=== PATIENT | female | born 1945 | race Caucasian/White ===

== ENCOUNTER → 2020-11-12 | Outpatient (CLI) | payer OTHER, MEDICAID ==
[~2020-11-12] MED LIST: ACETAZOLAMIDE250 MG PO; BETAPACE 80MG T80 MG PO; BUSPIRONE HCL5 MG PO; CLARITIN10 M2 PO; COUMADIN4 MG PO; COUMADIN6 MG PO; CRESTOR10 MG PO; ELIQUIS 5 MG TAB5 MG PO; FOLIC ACID PO; FOLIC ACID0.4 MG PO; FUROSEMIDE20 MG PO; FUROSEMIDE40 MG PO; IMDUR ER TAB 6060 MG PO; IPRAT-ALBUT 0.5-3 ML NEB; ISOSORBIDE MONO30 MG PO; ISOSORBIDE MONO60 MG PO; K-DUR TAB 10 M10 MEQ PO; K-DUR TAB 20 M20 MEQ PO; KLONOPIN TAB 00.5 MG PO; LASIX20 MG PO; LEVOTHYROXINE100 MCG PO; LEVOTHYROXINE112 MCG PO; LIVALO4 MG PO; MACROBID 100 M100 MG PO; MESTINON TAB 6060 MG PO; MESTINON60 MG PO; METHOTREXATE T2.5 MG PO; MYCOSTATIN100000 UTS PO; NASACORT16.9 ML; NEURONTIN 300300 MG PO; NORVASC 5 MG TAB5 MG PO; ONDANSETRON HCL8 MG PO; PREDNISONE 1 MG1 MG PO; PREDNISONE 20 M20 MG PO; PREDNISONE10 MG PO; PROAIR HFA8.5 GM INH; PROTONIX 40 MG40 M1 PO; SOTALOL AF120 MG PO; SOTALOL120 MG PO; SYNTHROID112 MCG PO; TRAMADOL HCL50 MG PO; TRAVATAN Z2.5 ML OP; ULTRAM50 MG PO; VENTOLIN HFA 66.7 GM INH; VITAMIN D 11000 UNIT PO; WARFARIN SODIUM4 MG PO; ZOLPIDEM TARTRAT5 MG PO
== END ==
LOC: KOH-I 11:08
DX: J18.9 Pneumonia, unspecified organism (principal); I51.7 Cardiomegaly; J98.4 Other disorders of lung
CPT/HCPCS: 71046

== ENCOUNTER → 2020-12-06 | Outpatient (CLI) | payer OTHER, MEDICAID | LOC: EXRD 11-26 08:45 | DX: R10.9 Unspecified abdominal pain (principal); K80.20 Calculus of gallbladder without cholecystitis without obstruction | CPT/HCPCS: 76700 ==

== ENCOUNTER → 2021-01-26 | Outpatient (CLI) | payer OTHER, MEDICAID | LOC: HEART 5 01-12 14:00 | DX: I48.91 Unspecified atrial fibrillation (principal); R94.39 Abnormal result of other cardiovascular function study ==

== ENCOUNTER 2021-02-03 12:47 | Observation (INO) | payer OTHER, MEDICAID ==
[~2021-02-03] VITALS: Ht 162.6 cm; Wt 88.5 kg
[~2021-02-03 12:47] MED LIST changes: -ACETAZOLAMIDE250 MG PO; -BETAPACE 80MG T80 MG PO; -BUSPIRONE HCL5 MG PO; -ELIQUIS 5 MG TAB5 MG PO; -FUROSEMIDE40 MG PO; -IPRAT-ALBUT 0.5-3 ML NEB; -K-DUR TAB 10 M10 MEQ PO; -LEVOTHYROXINE100 MCG PO; -MYCOSTATIN100000 UTS PO; -NASACORT16.9 ML; -ONDANSETRON HCL8 MG PO; -PREDNISONE 20 M20 MG PO; -PREDNISONE10 MG PO; -PROTONIX 40 MG40 M1 PO; -TRAMADOL HCL50 MG PO; -VENTOLIN HFA 66.7 GM INH; -WARFARIN SODIUM4 MG PO; -ZOLPIDEM TARTRAT5 MG PO
[2021-02-03 13:59] LABS: HEMOGLOBIN 13.1 gm/dl (12.3-15.3); RED BLOOD COUNT 3.91 M/UL (4.00-5.10); WHITE BLOOD COUNT 6.2 K/UL (4.5-11.0)
[2021-02-03 14:22] LABS: BUN/CREATININE RATIO 19 (0-10)
[2021-02-03] MEDS ORDERED: BUSPIRONE HCL5 MG PO (17:08)
[2021-02-03] MEDS ORDERED: FOLIC ACID0.4 MG PO (17:09)
[2021-02-03] MEDS ORDERED: FUROSEMIDE40 MG PO (17:12)
[2021-02-03] MEDS ORDERED: LEVOTHYROXINE100 MCG PO (17:12)
[2021-02-03] MEDS ORDERED: ISOSORBIDE MONO60 MG PO (17:13)
[2021-02-03] MEDS ORDERED: K-DUR TAB 10 M10 MEQ PO (17:14)
[2021-02-03] MEDS ORDERED: SOTALOL120 MG PO (17:15)
[2021-02-03] MEDS ORDERED: WARFARIN SODIUM4 MG PO (17:16)
[2021-02-03] MEDS ORDERED: ZOLPIDEM TARTRAT5 MG PO (17:16)
[2021-02-03] MEDS ORDERED: VENTOLIN HFA 66.7 GM INH (17:17)
[2021-02-03] MEDS ORDERED: NASACORT16.9 ML (17:26)
[2021-02-04 06:31] LABS: HEMOGLOBIN 12.1 gm/dl (12.3-15.3); RED BLOOD COUNT 3.65 M/UL (4.00-5.10); WHITE BLOOD COUNT 5.9 K/UL (4.5-11.0)
[2021-02-05 04:05] LABS: HEMOGLOBIN 11.1 gm/dl (12.3-15.3); RED BLOOD COUNT 3.4 M/UL (4.00-5.10); WHITE BLOOD COUNT 5.2 K/UL (4.5-11.0)
[2021-02-05 04:22] LABS: BUN/CREATININE RATIO 17 (0-10)
[2021-02-06] MEDS ORDERED: PROTONIX 40 MG40 M1 PO (16:28)
[2021-02-06] MEDS ORDERED: BETAPACE 80MG T80 MG PO (16:28)
[2021-02-06] MEDS ORDERED: ISOSORBIDE MONO30 MG PO (16:28)
[2021-02-06] MEDS ORDERED: ELIQUIS 5 MG TAB5 MG PO (16:28)
== END 2021-02-06 18:38 | disposition home or self-care (01) ==
LOC: ER1 12:47 → MED SURG 4 15:49 → CDU 15:49 → MED SURG 4 19:06
PROVIDERS: Physician Assistant; Physician Assistant Medical; ADMIT Internal Medicine Infectious Disease
DX: N30.00 Acute cystitis without hematuria (principal); B96.20 Unspecified Escherichia coli [E. coli] as the cause of diseases classified elsewhere; R11.2 Nausea with vomiting, unspecified; I49.8 Other specified cardiac arrhythmias; I48.20 Chronic atrial fibrillation, unspecified; G70.00 Myasthenia gravis without (acute) exacerbation; T45.515A Adverse effect of anticoagulants, initial encounter; I25.10 Atherosclerotic heart disease of native coronary artery without angina pectoris; I27.20 Pulmonary hypertension, unspecified; J96.11 Chronic respiratory failure with hypoxia; I11.0 Hypertensive heart disease with heart failure; I50.30 Unspecified diastolic (congestive) heart failure; E89.0 Postprocedural hypothyroidism; E78.5 Hyperlipidemia, unspecified; I89.0 Lymphedema, not elsewhere classified; D50.9 Iron deficiency anemia, unspecified; Z95.1 Presence of aortocoronary bypass graft; Z79.01 Long term (current) use of anticoagulants; Z79.899 Other long term (current) drug therapy; Z20.822 Contact with and (suspected) exposure to COVID-19
CPT/HCPCS: 0240U; 36415; 36600; 71045; 80048; 80053; 81001; 82550; 82553; 82803; 83690; 83735; 83874; 84439; 84443; 84484; 85025; 85027; 85610; 87077; 87086; 87186; 93005; 94640; 94664; 94760; 96374; 96375; 96376; 97110; 97110-GP-CQ; 97116-GP-CQ; 97162; 99285; C9113; G0378; J0696; J2405; J3430; J7030

== ENCOUNTER 2021-02-09 10:33 | Emergency (ER) | payer OTHER ==
[~2021-02-09 10:33] MED LIST changes: +BETAPACE 80MG T80 MG PO; +BUSPIRONE HCL5 MG PO; +ELIQUIS 5 MG TAB5 MG PO; +FUROSEMIDE40 MG PO; +K-DUR TAB 10 M10 MEQ PO; +LEVOTHYROXINE100 MCG PO; +NASACORT16.9 ML; +PROTONIX 40 MG40 M1 PO; +VENTOLIN HFA 66.7 GM INH; +WARFARIN SODIUM4 MG PO; +ZOLPIDEM TARTRAT5 MG PO
[2021-02-09 12:18] LABS: HEMOGLOBIN 13.1 gm/dl (12.3-15.3); RED BLOOD COUNT 3.91 M/UL (4.00-5.10); WHITE BLOOD COUNT 6.5 K/UL (4.5-11.0)
[2021-02-09 12:32] LABS: BUN/CREATININE RATIO 16 (0-10)
== END 2021-02-09 15:22 | disposition home or self-care (01) ==
LOC: ER1 10:33
PROVIDERS: Emergency Medicine
DX: J44.1 Chronic obstructive pulmonary disease with (acute) exacerbation (principal); I50.9 Heart failure, unspecified; N39.0 Urinary tract infection, site not specified; I48.91 Unspecified atrial fibrillation; Z95.1 Presence of aortocoronary bypass graft; Z91.041 Radiographic dye allergy status; Z79.899 Other long term (current) drug therapy
CPT/HCPCS: 71045; 80053; 81001; 82550; 82553; 83874; 84484; 85025; 87086; 93005; 99285

== ENCOUNTER 2021-02-16 16:08 | Inpatient (IN) | payer OTHER ==
[~2021-02-16] VITALS: Ht 162.6 cm; Wt 84.8 kg
[2021-02-16 19:36] LABS: HEMOGLOBIN 13.6 gm/dl (12.3-15.3); RED BLOOD COUNT 4.02 M/UL (4.00-5.10); WHITE BLOOD COUNT 7.1 K/UL (4.5-11.0)
[2021-02-16 20:01] LABS: BUN/CREATININE RATIO 15 (0-10)
[2021-02-17 04:07] LABS: HEMOGLOBIN 12.4 gm/dl (12.3-15.3); RED BLOOD COUNT 3.71 M/UL (4.00-5.10); WHITE BLOOD COUNT 6.3 K/UL (4.5-11.0)
[2021-02-17] MEDS ORDERED: ONDANSETRON HCL8 MG PO (14:23)
[2021-02-18 06:52] LABS: HEMOGLOBIN 12.5 gm/dl (12.3-15.3); RED BLOOD COUNT 3.74 M/UL (4.00-5.10)
[2021-02-18 06:54] LABS: WHITE BLOOD COUNT 8.4 K/UL (4.5-11.0)
[2021-02-19 04:41] LABS: HEMOGLOBIN 11.3 gm/dl (12.3-15.3); RED BLOOD COUNT 3.39 M/UL (4.00-5.10); WHITE BLOOD COUNT 8.3 K/UL (4.5-11.0)
[2021-02-19 04:58] LABS: BUN/CREATININE RATIO 26 (0-10)
[2021-02-20 04:00] LABS: HEMOGLOBIN 11.1 gm/dl (12.3-15.3); RED BLOOD COUNT 3.31 M/UL (4.00-5.10); WHITE BLOOD COUNT 6.3 K/UL (4.5-11.0)
[2021-02-20 05:54] LABS: BUN/CREATININE RATIO 27 (0-10)
[2021-02-21 06:00] LABS: HEMOGLOBIN 11.3 gm/dl (12.3-15.3); RED BLOOD COUNT 3.39 M/UL (4.00-5.10); WHITE BLOOD COUNT 7.3 K/UL (4.5-11.0)
[2021-02-21 06:29] LABS: BUN/CREATININE RATIO 32 (0-10)
[2021-02-21 14:06] LABS: ENTEROCOCCUS Not Detected (Negative); KPC-CARBAPENEM-RESISTANCE GENE Not Detected (Negative); STAPHYLOCOCCUS AUREUS Not Detected (Negative); STREP AGALACTIAE (GROUP B) Not Detected (Negative); STREPTOCOCCUS Not Detected (Negative); mecA (METHICILLIN RESIST GENE Not Detected (Negative); vanA/B (VANCOMYCIN RESIST GENE Not Detected (Negative)
[2021-02-21 14:07] LABS: ACINETOBACTER BAUMANNII Not Detected (Negative); CANDIDA ALBICANS Not Detected (Negative); CANDIDA KRUSEI Not Detected (Negative); CANDIDA TROPICALIS Not Detected (Negative); ESCHERICHIA COLI Not Detected (Negative); HAEMOPHILUS INFLUENZAE Not Detected (Negative); KLEBSIELLA OXYTOCA Not Detected (Negative); KLEBSIELLA PNEUMONIAE Not Detected (Negative); PROTEUS Not Detected (Negative); PSEUDOMONAS AERUGINOSA Not Detected (Negative); SERRATIA MARCESANS Not Detected (Negative); STREP PYOGENES (GROUP A) Not Detected (Negative)
[2021-02-21 15:21] LABS: STAPHYLOCOCCUS DETECTED (Negative)
[2021-02-22 06:38] LABS: HEMOGLOBIN 11.2 gm/dl (12.3-15.3); RED BLOOD COUNT 3.36 M/UL (4.00-5.10)
[2021-02-22 06:59] LABS: BUN/CREATININE RATIO 30 (0-10)
[2021-02-23 05:04] LABS: HEMOGLOBIN 13.5 gm/dl (12.3-15.3); RED BLOOD COUNT 4.23 M/UL (4.00-5.10); WHITE BLOOD COUNT 8.2 K/UL (4.5-11.0)
[2021-02-23 05:19] LABS: BUN/CREATININE RATIO 36 (0-10)
[2021-02-24 04:41] LABS: WHITE BLOOD COUNT 7.3 K/UL (4.5-11.0)
[2021-02-24 04:42] LABS: RED BLOOD COUNT 3.6 M/UL (4.00-5.10)
[2021-02-24 05:06] LABS: BUN/CREATININE RATIO 36 (0-10)
[2021-02-25 03:32] LABS: HEMOGLOBIN 11.1 gm/dl (12.3-15.3); RED BLOOD COUNT 3.33 M/UL (4.00-5.10); WHITE BLOOD COUNT 7.4 K/UL (4.5-11.0)
[2021-02-25 03:51] LABS: BUN/CREATININE RATIO 32 (0-10)
[2021-02-28 04:08] LABS: HEMOGLOBIN 12.3 gm/dl (12.3-15.3); RED BLOOD COUNT 3.72 M/UL (4.00-5.10); WHITE BLOOD COUNT 9.4 K/UL (4.5-11.0)
[2021-02-28 04:37] LABS: BUN/CREATININE RATIO 35 (0-10)
[2021-02-28] MEDS ORDERED: ACETAZOLAMIDE250 MG PO (10:52)
[2021-02-28] MEDS ORDERED: TRAMADOL HCL50 MG PO (10:52)
[2021-02-28] MEDS ORDERED: PREDNISONE10 MG PO (11:01)
== END 2021-02-28 14:32 | DRG 56 ==
LOC: ER1 16:08 → CDU 21:48 → MED SURG 4 21:48
PROVIDERS: Internal Medicine; Internal Medicine Pulmonary Disease; ADMIT Internal Medicine
DX: G70.01 Myasthenia gravis with (acute) exacerbation (principal); J96.21 Acute and chronic respiratory failure with hypoxia; J96.22 Acute and chronic respiratory failure with hypercapnia; Z20.822 Contact with and (suspected) exposure to COVID-19; I50.41 Acute combined systolic (congestive) and diastolic (congestive) heart failure; N17.9 Acute kidney failure, unspecified; E87.3 Alkalosis; J44.1 Chronic obstructive pulmonary disease with (acute) exacerbation; N39.0 Urinary tract infection, site not specified; J90 Pleural effusion, not elsewhere classified; E66.2 Morbid (severe) obesity with alveolar hypoventilation; I48.20 Chronic atrial fibrillation, unspecified; E87.1 Hypo-osmolality and hyponatremia; E87.6 Hypokalemia; E03.9 Hypothyroidism, unspecified; D50.9 Iron deficiency anemia, unspecified; I11.0 Hypertensive heart disease with heart failure; I89.0 Lymphedema, not elsewhere classified; I27.20 Pulmonary hypertension, unspecified; E86.0 Dehydration; M19.09 Primary osteoarthritis, other specified site; E83.39 Other disorders of phosphorus metabolism; I25.10 Atherosclerotic heart disease of native coronary artery without angina pectoris; K59.00 Constipation, unspecified; I48.0 Paroxysmal atrial fibrillation; Z79.01 Long term (current) use of anticoagulants; Z95.1 Presence of aortocoronary bypass graft; Z83.3 Family history of diabetes mellitus; Z91.041 Radiographic dye allergy status; Z82.49 Family history of ischemic heart disease and other diseases of the circulatory system; Z68.30 Body mass index [BMI] 30.0-30.9, adult
CPT/HCPCS: 0240U; 36415; 36600; 71045; 76700; 80048; 80053; 80202; 81001; 82550; 82553; 82803; 83605; 83615; 83690; 83735; 83874; 83880; 84100; 84132; 84484; 85025; 85027; 86140; 87040; 87077; 87150; 87186; 92610; 93005; 94060; 94640; 94664; 94760; 96374; 97110; 97116-GP-CQ; 97161; 97530; 97530-GP-CQ; 99285; J0456; J0696; J1040; J1568; J1940; J2920; J2930; J3370; J7030; J7070; J8610

== ENCOUNTER 2021-03-13 18:31 | Inpatient (IN) | payer OTHER ==
[~2021-03-13] VITALS: Ht 162.6 cm; Wt 69.4 kg
[~2021-03-13 18:31] MED LIST changes: +ACETAZOLAMIDE250 MG PO; +ONDANSETRON HCL8 MG PO; +PREDNISONE10 MG PO; +TRAMADOL HCL50 MG PO
[2021-03-13 21:04] LABS: HEMOGLOBIN 11.4 gm/dl (12.3-15.3); RED BLOOD COUNT 3.47 M/UL (4.00-5.10); WHITE BLOOD COUNT 5.5 K/UL (4.5-11.0)
[2021-03-13 21:31] LABS: BUN/CREATININE RATIO 30 (0-10)
[2021-03-14 12:45] LABS: HEMOGLOBIN 10.7 gm/dl (12.3-15.3); RED BLOOD COUNT 3.17 M/UL (4.00-5.10)
[2021-03-14 13:09] LABS: BUN/CREATININE RATIO 31 (0-10)
[2021-03-15 04:37] LABS: HEMOGLOBIN 10.1 gm/dl (12.3-15.3); RED BLOOD COUNT 3.02 M/UL (4.00-5.10)
[2021-03-15 05:00] LABS: BUN/CREATININE RATIO 32 (0-10)
[2021-03-16 03:29] LABS: BUN/CREATININE RATIO 30 (0-10)
[2021-03-18 03:39] LABS: BUN/CREATININE RATIO 27 (0-10)
[2021-03-21 06:57] LABS: BUN/CREATININE RATIO 13 (0-10)
[2021-03-22 04:59] LABS: BUN/CREATININE RATIO 12 (0-10)
[2021-03-24 04:13] LABS: RED BLOOD COUNT 3.02 M/UL (4.00-5.10); WHITE BLOOD COUNT 4.9 K/UL (4.5-11.0)
[2021-03-24 04:43] LABS: BUN/CREATININE RATIO 13 (0-10)
[2021-03-25] MEDS ORDERED: TRAMADOL HCL50 MG PO (09:49)
[2021-03-25] MEDS ORDERED: MYCOSTATIN100000 UTS PO (11:10)
== END 2021-03-25 16:58 | DRG 981 ==
LOC: ER1 18:31 → CDU 03-14 00:18 → PROG CARE 03-14 00:18 → MED SURG 4 03-14 00:18 → PROG CARE 03-14 20:51 → MED SURG 4 03-18 12:12
PROVIDERS: Emergency Medicine; Internal Medicine; ADMIT Family Medicine
PROC: 5A09457 Assistance with Respiratory Ventilation, 24-96 Consecutive Hours, Continuous Positive Airway Pressure (ICD-10-PCS; principal; 2021-03-14)
PROC: 0D9 Gastrointestinal System, Drainage (ICD-10-PCS; 2021-03-21)
PROC: 0DH63UZ Insertion of Feeding Device into Stomach, Percutaneous Approach (ICD-10-PCS; 2021-03-21)
PROC: 3E0G76Z Introduction of Nutritional Substance into Upper GI, Via Natural or Artificial Opening (ICD-10-PCS; 2021-03-21)
DX: J96.22 Acute and chronic respiratory failure with hypercapnia (principal); J69.0 Pneumonitis due to inhalation of food and vomit; G93.41 Metabolic encephalopathy; E43 Unspecified severe protein-calorie malnutrition; I62.00 Nontraumatic subdural hemorrhage, unspecified; R57.8 Other shock; B37.81 Candidal esophagitis; E87.2 Acidosis; I48.20 Chronic atrial fibrillation, unspecified; I50.32 Chronic diastolic (congestive) heart failure; N39.0 Urinary tract infection, site not specified; J90 Pleural effusion, not elsewhere classified; R64 Cachexia; Z68.1 Body mass index [BMI] 19.9 or less, adult; Z66 Do not resuscitate; Z51.5 Encounter for palliative care; G70.00 Myasthenia gravis without (acute) exacerbation; B96.20 Unspecified Escherichia coli [E. coli] as the cause of diseases classified elsewhere; J98.6 Disorders of diaphragm; I25.10 Atherosclerotic heart disease of native coronary artery without angina pectoris; Z20.822 Contact with and (suspected) exposure to COVID-19; I27.20 Pulmonary hypertension, unspecified; E83.42 Hypomagnesemia; E87.6 Hypokalemia; E66.9 Obesity, unspecified; I95.9 Hypotension, unspecified; F03.90 Unspecified dementia, unspecified severity, without behavioral disturbance, psychotic disturbance, mood disturbance, and anxiety; E11.9 Type 2 diabetes mellitus without complications; E78.5 Hyperlipidemia, unspecified; I48.0 Paroxysmal atrial fibrillation; R62.7 Adult failure to thrive; F41.9 Anxiety disorder, unspecified; E02 Subclinical iodine-deficiency hypothyroidism; D50.9 Iron deficiency anemia, unspecified; I11.0 Hypertensive heart disease with heart failure; K21.9 Gastro-esophageal reflux disease without esophagitis; Z90.49 Acquired absence of other specified parts of digestive tract; Z99.81 Dependence on supplemental oxygen; Z98.890 Other specified postprocedural states; Z95.1 Presence of aortocoronary bypass graft; Z91.041 Radiographic dye allergy status; Z86.73 Personal history of transient ischemic attack (TIA), and cerebral infarction without residual deficits; Z82.49 Family history of ischemic heart disease and other diseases of the circulatory system; Z79.01 Long term (current) use of anticoagulants; Z93.0 Tracheostomy status; Z83.3 Family history of diabetes mellitus; Z79.899 Other long term (current) drug therapy
CPT/HCPCS: 0240U; 36415; 36600; 70450; 74022; 80048; 80053; 81001; 82550; 82553; 82803; 83605; 83690; 83735; 83874; 83880; 84132; 84439; 84443; 84484; 85025; 85027; 85610; 85730; 87040; 87077; 87086; 87186; 93005; 94640; 94660; 94664; 94760; 96374; 97110; 97116-GP-CQ; 97162; 97166; 97530; 97530-GP-CQ; 99285; C9113; J0696; J1335; J1568; J1650; J2405; J2920; J2930; J3480; J7030; J7040; J7070; J8610; U0002

== ENCOUNTER 2021-03-31 17:58 | Inpatient (IN) | payer OTHER ==
[~2021-03-31] VITALS: Ht 160 cm; Wt 83.9 kg
[~2021-03-31 17:58] MED LIST changes: +MYCOSTATIN100000 UTS PO
[2021-04-01 00:14] LABS: HEMOGLOBIN 9.2 gm/dl (12.3-15.3); RED BLOOD COUNT 2.76 M/UL (4.00-5.10); WHITE BLOOD COUNT 3.8 K/UL (4.5-11.0)
[2021-04-01 00:33] LABS: BUN/CREATININE RATIO 17 (0-10)
[2021-04-02 02:46] LABS: HEMOGLOBIN 9.2 gm/dl (12.3-15.3); RED BLOOD COUNT 2.79 M/UL (4.00-5.10); WHITE BLOOD COUNT 3.8 K/UL (4.5-11.0)
[2021-04-02 03:07] LABS: BUN/CREATININE RATIO 12 (0-10)
[2021-04-03 04:04] LABS: BUN/CREATININE RATIO 11 (0-10)
[2021-04-04 02:25] LABS: HEMOGLOBIN 9.2 gm/dl (12.3-15.3); RED BLOOD COUNT 2.77 M/UL (4.00-5.10)
[2021-04-04 03:00] LABS: BUN/CREATININE RATIO 10 (0-10)
[2021-04-05 05:02] LABS: HEMOGLOBIN 9.1 gm/dl (12.3-15.3); RED BLOOD COUNT 2.75 M/UL (4.00-5.10)
[2021-04-05 05:06] LABS: BUN/CREATININE RATIO 10 (0-10)
--- NOTE | 2021-04-05 14:00 | NUR ---
NO CHANGE FROM PREVIOUS ASSESSMENT
[2021-04-06 05:19] LABS: HEMOGLOBIN 9.3 gm/dl (12.3-15.3); RED BLOOD COUNT 2.72 M/UL (4.00-5.10); WHITE BLOOD COUNT 4.7 K/UL (4.5-11.0)
[2021-04-06 05:24] LABS: BUN/CREATININE RATIO 12 (0-10)
[2021-04-07 04:23] LABS: HEMOGLOBIN 9.7 gm/dl (12.3-15.3); RED BLOOD COUNT 2.92 M/UL (4.00-5.10); WHITE BLOOD COUNT 5.1 K/UL (4.5-11.0)
[2021-04-07 04:55] LABS: BUN/CREATININE RATIO 15 (0-10)
[2021-04-08 03:44] LABS: BUN/CREATININE RATIO 17 (0-10)
--- NOTE | 2021-04-08 14:00 | NUR ---
NO CHANGE FROM PERVIOUS ASSESSMENT
[2021-04-09 05:28] LABS: BUN/CREATININE RATIO 21 (0-10)
[2021-04-12 03:52] LABS: HEMOGLOBIN 8.7 gm/dl (12.3-15.3); RED BLOOD COUNT 2.61 M/UL (4.00-5.10); WHITE BLOOD COUNT 6.6 K/UL (4.5-11.0)
[2021-04-12 04:16] LABS: BUN/CREATININE RATIO 25 (0-10)
[2021-04-12] MEDS ORDERED: PREDNISONE 20 M20 MG PO (11:02)
[2021-04-12] MEDS ORDERED: IPRAT-ALBUT 0.5-3 ML NEB (11:05)
== END 2021-04-13 13:31 | DRG 177 ==
LOC: M/S 22:40 → PROG CARE 22:40 → M/S 04-10 12:55
PROVIDERS: Internal Medicine; Internal Medicine Pulmonary Disease; ADMIT Internal Medicine
PROC: B24BZZ4 Ultrasonography of Heart with Aorta, Transesophageal (ICD-10-PCS; principal; 2021-04-04)
DX: J69.0 Pneumonitis due to inhalation of food and vomit (principal); J96.21 Acute and chronic respiratory failure with hypoxia; J96.22 Acute and chronic respiratory failure with hypercapnia; G70.01 Myasthenia gravis with (acute) exacerbation; J44.0 Chronic obstructive pulmonary disease with (acute) lower respiratory infection; J44.1 Chronic obstructive pulmonary disease with (acute) exacerbation; I50.32 Chronic diastolic (congestive) heart failure; D61.818 Other pancytopenia; J98.11 Atelectasis; G93.40 Encephalopathy, unspecified; N39.0 Urinary tract infection, site not specified; F11.20 Opioid dependence, uncomplicated; E87.6 Hypokalemia; I11.0 Hypertensive heart disease with heart failure; I48.91 Unspecified atrial fibrillation; Z79.01 Long term (current) use of anticoagulants; Z79.899 Other long term (current) drug therapy; M10.9 Gout, unspecified; I45.10 Unspecified right bundle-branch block; I89.0 Lymphedema, not elsewhere classified; D64.9 Anemia, unspecified; E03.9 Hypothyroidism, unspecified; G89.29 Other chronic pain; I27.20 Pulmonary hypertension, unspecified; Z20.822 Contact with and (suspected) exposure to COVID-19; L89.152 Pressure ulcer of sacral region, stage 2; E83.39 Other disorders of phosphorus metabolism; J98.6 Disorders of diaphragm; Z66 Do not resuscitate; F41.1 Generalized anxiety disorder; K21.9 Gastro-esophageal reflux disease without esophagitis; I25.10 Atherosclerotic heart disease of native coronary artery without angina pectoris; Z95.1 Presence of aortocoronary bypass graft; Z86.73 Personal history of transient ischemic attack (TIA), and cerebral infarction without residual deficits; Z82.49 Family history of ischemic heart disease and other diseases of the circulatory system
CPT/HCPCS: ECHO; 36415; 36600; 71045; 71250; 80048; 80053; 80202; 81001; 82140; 82550; 82553; 82607; 82746; 82803; 83540; 83550; 83605; 83735; 83874; 84100; 84132; 84439; 84443; 84484; 85025; 85027; 85045; 85652; 86140; 87040; 87081; 92610; 93306; 94640; 94660; 94664; 94760; 97110; 97110-GP-CQ; 97116; 97116-GP-CQ; 97161; 97166; 97530-GP-CQ; J1568; J2185; J3370; J7030; J7060; J7070; J8610

== ENCOUNTER 2022-03-25 09:47 | Emergency (ER) | payer MEDICARE, OTHER ==
[~2022-03-25 09:47] MED LIST changes: +IPRAT-ALBUT 0.5-3 ML NEB; +PREDNISONE 20 M20 MG PO
[2022-03-25 10:27] LABS: HEMOGLOBIN 9.2 gm/dl (12.3-15.3); RED BLOOD COUNT 3.08 M/UL (4.00-5.10); WHITE BLOOD COUNT 6.9 K/UL (4.5-11.0)
[2022-03-25 11:08] LABS: BUN/CREATININE RATIO 21 (0-10)
== END 2022-03-25 18:25 | disposition home or self-care (01) ==
LOC: ER1 09:47
PROVIDERS: Family Medicine
DX: J96.11 Chronic respiratory failure with hypoxia (principal); I11.0 Hypertensive heart disease with heart failure; I50.30 Unspecified diastolic (congestive) heart failure; G70.00 Myasthenia gravis without (acute) exacerbation; K21.9 Gastro-esophageal reflux disease without esophagitis; I48.91 Unspecified atrial fibrillation; Z79.899 Other long term (current) drug therapy; Z79.01 Long term (current) use of anticoagulants; Z86.16 Personal history of COVID-19; Z79.52 Long term (current) use of systemic steroids
CPT/HCPCS: 36600; 71045; 80053; 82550; 82553; 82803; 83605; 83880; 84484; 85025; 87040; 93005; 96374; 99285; J1940

== ENCOUNTER → 2022-05-09 | Outpatient (CLI) | payer MEDICARE, OTHER | LOC: HEART 5 10:30 | DX: J44.9 Chronic obstructive pulmonary disease, unspecified (principal); R94.2 Abnormal results of pulmonary function studies | CPT/HCPCS: 94060; 94729 ==

== ENCOUNTER 2022-05-18 03:13 | Inpatient (IN) | payer MEDICARE, OTHER ==
[~2022-05-18] VITALS: Ht 160 cm; Wt 67.8 kg
[~2022-05-18 03:13] MED LIST changes: +BUSPIRONE HCL15 MG PO; -BUSPIRONE HCL5 MG PO; -LASIX20 MG PO; +LASIX80 MG PO; -LEVOTHYROXINE100 MCG PO; +LEVOTHYROXINE175 MCG PO
[2022-05-18 04:00] LABS: HEMOGLOBIN 10.3 gm/dl (12.3-15.3); RED BLOOD COUNT 3.44 M/UL (4.00-5.10); WHITE BLOOD COUNT 24.7 K/UL (4.5-11.0)
[2022-05-18 04:22] LABS: BUN/CREATININE RATIO 24 (0-10)
[2022-05-18] MEDS ORDERED: ISOSORBIDE MONO30 MG PO (12:56)
[2022-05-18] MEDS ORDERED: ARTIFICIAL TEAR15 M2 OU (12:59)
[2022-05-18] MEDS ORDERED: MELATONIN5 M2 PO (13:02)
[2022-05-18] MEDS ORDERED: OMEPRAZOLE20 MG PO (13:04)
[2022-05-18] MEDS ORDERED: MIRALAX 119 GR119 GM PO (13:06)
[2022-05-18] MEDS ORDERED: PREDNISONE5 MG PO (13:08)
[2022-05-18] MEDS ORDERED: SERTRALINE HCL100 MG PO (13:10)
[2022-05-18] MEDS ORDERED: SPIRONOLACTONE100 MG PO (13:13)
[2022-05-18] MEDS ORDERED: VITAMIN D32400 UNIT/ PO (13:20)
[2022-05-18] MEDS ORDERED: ELIQUIS2.5 MG PO (13:25)
[2022-05-18] MEDS ORDERED: FERROUS SULFAT325 M2 PO (13:27)
[2022-05-18] MEDS ORDERED: FLONASE 0.05% N16 GM (13:29)
[2022-05-18] MEDS ORDERED: PROBIOTIC1 EAC2 PO (13:34)
[2022-05-18] MEDS ORDERED: SENNA8.6 MG PO (13:36)
[2022-05-18] MEDS ORDERED: SOTALOL120 MG PO (13:38)
[2022-05-18] MEDS ORDERED: ACETAMINOPHEN500 MG PO (13:41)
[2022-05-18] MEDS ORDERED: ARFORMOTER15 MCG/2 M HHN (13:47)
[2022-05-18] MEDS ORDERED: BUDESONIDE0.5 MG/2 M INH (13:50)
[2022-05-18] MEDS ORDERED: IPRAT-ALBUT 0.5-3 ML INH (13:53)
[2022-05-19 01:41] LABS: HEMOGLOBIN 8.8 gm/dl (12.3-15.3); RED BLOOD COUNT 2.95 M/UL (4.00-5.10); WHITE BLOOD COUNT 9.7 K/UL (4.5-11.0)
[2022-05-19 17:43] LABS: HEMOGLOBIN 10.4 gm/dl (12.3-15.3)
[2022-05-19 17:54] LABS: RED BLOOD COUNT 3.53 M/UL (4.00-5.10); WHITE BLOOD COUNT 14.1 K/UL (4.5-11.0)
[2022-05-19 18:06] LABS: BUN/CREATININE RATIO 27 (0-10)
[2022-05-20 04:32] LABS: HEMOGLOBIN 9.4 gm/dl (12.3-15.3); RED BLOOD COUNT 3.25 M/UL (4.00-5.10); WHITE BLOOD COUNT 13.5 K/UL (4.5-11.0)
[2022-05-20 05:08] LABS: BUN/CREATININE RATIO 25 (0-10)
[2022-05-21 05:20] LABS: HEMOGLOBIN 9.3 gm/dl (12.3-15.3); RED BLOOD COUNT 3.2 M/UL (4.00-5.10); WHITE BLOOD COUNT 11.9 K/UL (4.5-11.0)
[2022-05-21 06:33] LABS: BUN/CREATININE RATIO 24 (0-10)
[2022-05-22 03:54] LABS: HEMOGLOBIN 8.8 gm/dl (12.3-15.3); RED BLOOD COUNT 2.97 M/UL (4.00-5.10)
[2022-05-22 04:13] LABS: WHITE BLOOD COUNT 5.4 K/UL (4.5-11.0)
[2022-05-22 04:16] LABS: BUN/CREATININE RATIO 31 (0-10)
[2022-05-23 03:53] LABS: RED BLOOD COUNT 2.73 M/UL (4.00-5.10)
[2022-05-23 03:57] LABS: WHITE BLOOD COUNT 7.7 K/UL (4.5-11.0)
[2022-05-23 04:18] LABS: BUN/CREATININE RATIO 42 (0-10)
[2022-05-24 05:23] LABS: HEMOGLOBIN 8.4 gm/dl (12.3-15.3); RED BLOOD COUNT 2.82 M/UL (4.00-5.10); WHITE BLOOD COUNT 7.3 K/UL (4.5-11.0)
[2022-05-24 05:46] LABS: BUN/CREATININE RATIO 45 (0-10)
[2022-05-25 05:14] LABS: HEMOGLOBIN 7.4 gm/dl (12.3-15.3); WHITE BLOOD COUNT 6.9 K/UL (4.5-11.0)
[2022-05-25 05:39] LABS: RED BLOOD COUNT 2.48 M/UL (4.00-5.10)
[2022-05-25 05:43] LABS: BUN/CREATININE RATIO 44 (0-10)
[2022-05-25 18:56] LABS: HEMOGLOBIN 8.8 gm/dl (12.3-15.3)
[2022-05-26 04:13] LABS: HEMOGLOBIN 8.4 gm/dl (12.3-15.3)
[2022-05-26 04:14] LABS: RED BLOOD COUNT 2.86 M/UL (4.00-5.10); WHITE BLOOD COUNT 8.7 K/UL (4.5-11.0)
[2022-05-26 04:38] LABS: BUN/CREATININE RATIO 51 (0-10)
[2022-05-27 05:31] LABS: BUN/CREATININE RATIO 69 (0-10)
[2022-05-27 06:31] LABS: WHITE BLOOD COUNT 10.4 K/UL (4.5-11.0)
[2022-05-27 06:34] LABS: RED BLOOD COUNT 2.15 M/UL (4.00-5.10)
[2022-05-27 06:37] LABS: HEMOGLOBIN 6.3 gm/dl (12.3-15.3)
[2022-05-27 16:37] LABS: HEMOGLOBIN 7.9 gm/dl (12.3-15.3)
[2022-05-27 23:46] LABS: HEMOGLOBIN 6.2 gm/dl (12.3-15.3)
[2022-05-28 08:07] LABS: HEMOGLOBIN 9.6 gm/dl (12.3-15.3); RED BLOOD COUNT 3.23 M/UL (4.00-5.10); WHITE BLOOD COUNT 7.3 K/UL (4.5-11.0)
[2022-05-28 08:45] LABS: BUN/CREATININE RATIO 84 (0-10)
[2022-05-28 14:11] LABS: HEMOGLOBIN 9.4 gm/dl (12.3-15.3); RED BLOOD COUNT 3.15 M/UL (4.00-5.10); WHITE BLOOD COUNT 7.8 K/UL (4.5-11.0)
[2022-05-28 14:30] LABS: BUN/CREATININE RATIO 73 (0-10)
[2022-05-28 20:30] LABS: HEMOGLOBIN 9.3 gm/dl (12.3-15.3)
[2022-05-29 05:07] LABS: RED BLOOD COUNT 2.95 M/UL (4.00-5.10); WHITE BLOOD COUNT 9.7 K/UL (4.5-11.0)
[2022-05-29 05:34] LABS: BUN/CREATININE RATIO 80 (0-10)
--- NOTE | 2022-05-30 21:22 | NUR ---
FAMILY REQUESTING "VALIUM" FOR PATIENT. STATES SHES MOANING AND APPEARS ANXIOUS. VALIUM 2.5 MG IV ADMINISTERED.
== END 2022-05-31 16:56 | DRG 853 ==
LOC: ER1 03:13 → CCU 06:34 → CDU 06:34 → PROG CARE 06:34 → CCU 05-19 13:58
PROVIDERS: Emergency Medicine; Family Medicine; Internal Medicine; Internal Medicine Critical Care Medicine; Internal Medicine Infectious Disease; Surgery; ADMIT Internal Medicine
PROC: 0D1L0Z4 Bypass Transverse Colon to Cutaneous, Open Approach (ICD-10-PCS; 2022-05-19)
PROC: 0DTN0ZZ Resection of Sigmoid Colon, Open Approach (ICD-10-PCS; principal; 2022-05-19 09:00)
DX: A41.9 Sepsis, unspecified organism (principal); G70.01 Myasthenia gravis with (acute) exacerbation; R65.21 Severe sepsis with septic shock; K57.20 Diverticulitis of large intestine with perforation and abscess without bleeding; I48.20 Chronic atrial fibrillation, unspecified; D62 Acute posthemorrhagic anemia; E87.0 Hyperosmolality and hypernatremia; J96.11 Chronic respiratory failure with hypoxia; N13.30 Unspecified hydronephrosis; I50.32 Chronic diastolic (congestive) heart failure; Z66 Do not resuscitate; Z20.822 Contact with and (suspected) exposure to COVID-19; Z51.5 Encounter for palliative care; E66.9 Obesity, unspecified; F41.9 Anxiety disorder, unspecified; D64.9 Anemia, unspecified; K21.9 Gastro-esophageal reflux disease without esophagitis; E03.9 Hypothyroidism, unspecified; E87.6 Hypokalemia; R53.81 Other malaise; J44.9 Chronic obstructive pulmonary disease, unspecified; I11.0 Hypertensive heart disease with heart failure; I48.91 Unspecified atrial fibrillation; I25.10 Atherosclerotic heart disease of native coronary artery without angina pectoris; Z93.3 Colostomy status; Z95.1 Presence of aortocoronary bypass graft; Z79.01 Long term (current) use of anticoagulants; Z82.49 Family history of ischemic heart disease and other diseases of the circulatory system; Z90.49 Acquired absence of other specified parts of digestive tract; Z74.01 Bed confinement status; Z91.041 Radiographic dye allergy status; I25.2 Old myocardial infarction; Z99.81 Dependence on supplemental oxygen; Z68.27 Body mass index [BMI] 27.0-27.9, adult
CPT/HCPCS: 0240U; 36415; 36430; 36600; 71045; 74018; 80048; 80053; 80202; 81001; 82272; 82550; 82553; 82803; 82962; 83605; 83690; 83735; 84132; 84478; 84484; 85014; 85018; 85025; 85027; 85610; 86850; 86900; 86901; 86920; 87040; 87086; 93005; 94002; 94003; 94640; 94664; 94760; 94762; 96365; 96375; 96376; 99285; C9113; J0461; J0696; J1160; J1568; J1650; J1720; J2001; J2185; J2270; J2370; J2405; J2543; J2550; J2704; J3010; J3360; J3370; J3475; J3480; J7030; J7040; J7050; J7070; J8610; P9016